=== PATIENT | female | born 1985 | race African-American/Black ===

== ENCOUNTER 2016-10-24 11:00 | Emergency (ER) | payer OTHER ==
[~2016-10-24] VITALS: Ht 152.4 cm; Wt 54.4 kg
[~2016-10-24 11:00] MED LIST: AMOXICILLIN 50500 M1 PO; APAP/CODEINE ELI5 M1 OR; NAPROSYN500 MG PO; PENICILLIN V P500 MG PO; ULTRAM 50MG TAB50 MG PO
[2016-10-24 11:49] LABS: URINE BILIRUBIN NEGATIVE (Negative); URINE BLOOD NEGATIVE (Negative); URINE COLOR YELLOW; URINE GLUCOSE-RANDOM* NEGATIVE (Negative); URINE KETONES TRACE (Negative); URINE LEUKOCYTES-REFLEX TRACE (Negative); URINE PROTEIN (DIPSTICK) NEGATIVE (Negative); URINE SPECIFIC GRAVITY 1.025 (1.003-1.035)
[2016-10-24] MEDS ORDERED: DIFLUCAN200 MG PO (12:14)
[2016-10-24] MEDS ORDERED: VALTREX1000 MG PO (12:15)
[2016-10-24 12:26] VITALS: BP 125/71
[2016-10-27 05:43] LABS: CHLAMYDIA TRACHOMATIS-PCR Negative (Negative); NEISSERIA GONORRHEA-PCR Negative (Negative)
== END 2016-10-24 12:16 | disposition home or self-care (01) ==
LOC: ER 11:00
PROVIDERS: Physician Assistant
DX: B37.3 Candidiasis of vulva and vagina (principal); A60.00 Herpesviral infection of urogenital system, unspecified

== ENCOUNTER 2018-05-10 22:28 | Emergency (ER) | payer OTHER ==
[~2018-05-10] VITALS: Ht 157.5 cm; Wt 59.9 kg
[~2018-05-10 22:28] MED LIST changes: +DIFLUCAN200 MG PO; +VALTREX1000 MG PO
[2018-05-10] MEDS ORDERED: TESSALON PERLE100 MG PO (23:56)
[2018-05-10] MEDS ORDERED: PROMETH-CODEIN 65 ML PO (23:56)
[2018-05-11 00:06] VITALS: BP 102/70
== END 2018-05-11 00:07 | disposition home or self-care (01) ==
LOC: ER 22:28
DX: J06.9 Acute upper respiratory infection, unspecified (principal)